=== PATIENT | female | born 1965 | race Caucasian/White ===

== ENCOUNTER 2020-03-08 08:54 | Outpatient (RCR) | payer MEDICAID, SELFPAY ==
--- NOTE | 2020-03-09 10:37 | HP.FCE ---
Floor (Occasional 1-33% of Day): 35# Floor (Frequent 34-66% of Day): 18# Floor (Constant 67-100% of Day): 7# Floor PDL: Light-Medium Knee (Occasional 1-33% of Day): 35# Knee (Frequent 34-66% of Day): 18# Knee (Constant 67-100% of Day): 7# Knee PDL: Light-Medium Waist (Occasional 1-33% of Day): 35# Waist (Frequent 34-66% of Day): 18# Waist (Constant 67-100% of Day): 7# Waist PDL: Light-Medium Shoulder (Occasional 1-33% of Day): 30# Shoulder (Frequent 34-66% of Day): 15# Shoulder (Constant 67-100% of Day): NA Shoulder PDL: Light Overhead (Occasional 1-33% of Day): 15# Overhead (Frequent 34-66% of Day): 8# Overhead (Constant 67-100% of Day): NA Overhead PDL: Sedentary-Light Comments: pt demo poor lifting mechanics with lifting- use of UB more than LB and pt lifted boxes keeping them away from body vs keeping weight close to pts body. Bending: Frequent Ability (34-66% of day) Squatting: Frequent Ability (34-66% of day) Kneeling: Occasional Ability (1-33% of day) Comments: with external support Reaching out: Occasional Ability (1-33% of day) Reaching up: Occasional Ability (1-33% of day) Sitting: Frequent Ability (34-66% of day) Comments: with ability to shift body weight Walking: Frequent Ability (34-66% of day) Standing: Occasional Ability (1-33% of day) Duration Sedentary Sedentary Light Light Light Medium Medium Medium Heavy Very Heavy Heavy Occasional (0-33% of day) Frequent (34-66% of day) Constant (67-100% of day) 10 # Negligible Negligible 15 # 8 # Negligible 20 # 10# Negli. 35 # 18 # 7 # 50 # 25 # 10 # 75 # 100 # >100 # 38 # 50 # >50 # 15 # 20 # >20 # Height: 1.68 m Weight:: 81.647 kg Hand Dominance: Right Medical History Including Restrictions: Pt states she was in good health untill 1998 when she was diagnossed with anxiety and IBS. pt states she controls her IBS by diet, and with anxiety she has medication but does not take the medication she avoids stressful situations. Pt states she was dx with chronic myofascial syndrom in 2001 or 2003. she states she is mtg the symptoms with pain medication and deep tissue massages. pt states she does smoke and does not exercise. Diagnoses: Chronic Myofascial syndrom dx in 2001 -2003 per pt. CTS 2013 bilateral per pt. chronic back pain per dr. note. hyperlipidemia per dr. note Symptoms: Pain in top of shoulders radiating to neck and to base of skull. low back pain. knee pain. bilateral hand tingling/numbness at night braces alleviate symptoms Pain: Pt states she takes percoset 7.5 or 7.25 millagrams for pain 1-2 x a day. pt reports her current pain level is 4/10. no pain medication taken today. resting heart rate 85. Anneliese pain scale score 8 a score of 30 or greater would indicate poor poor psychodynamics. Pt well below 30. Work History: Pt states she works for [employer] and has worked there on and off for 6 years. 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 Pt states she works 3 days a week and 6 hours a day. pt states prior to her employment at the [employer] she worked 5 months for [employer] but was unable to continue with that position due to pain. Behavioral: pt was cooperative throughout assessment and demonstrated with flat affect. ADLS: Pt states she lives in a ranch home with a basement. pt states two entry steps with two rails. Pt's lives with and daughter who is 33 years old. Pt states her daughter does the laundry due to the steps. Daughter does the yard work. does not work outside home his is on disability and placed on that in in 1998. Pt states she has a tub shower combination no adaptive eq. needed. pt reports she can bath and dress ind. pt states she can do the grocery shopping, meal prep and cleaning pt can do at ind. level. drives ind. ROM: pt demo ROM WNL Strength: pt demo mmt 4/5 grossly throughout Right Collection Systems Technician Strength Average: 40.00 Right Collection Systems Technician Strength Percentile: 3% Left Collection Systems Technician Strength Average: 45.00 Left Collection Systems Technician Strength Percentile: 11% Right Lateral Pinch Average: 10.66 Right Lateral Pinch Percentile: 25% Left Lateral Pinch Average: 9.33 Left Lateral Pinch Percentile: 25% Right Tripod Pinch Average: 10.00 Right Tripod Pinch Percentile: 25# Left Tripod Pinch Average: 10.00 Left Tripod Pinch Percentile: 50% Sensation: Monofilament testing bilateral 2.83 indicates sensation is WNL Fine Motor: 9-hole peg test right 19.67 places pt in the 75%. left 20.16 places pt in the 75% Balance: No loss of balance noted during assessment Bending: pt demo the ability to bend forward three times, ten times and ten times rapidly. pt reported pain 6/10 did not indicate where pain was. heart rate ranged from 89-92 following. Pt can bend forward on a frequent ability. Squatting: pt demo the ability to squat three times ten times and 9 times rapidly. pt reported muscle pain in pointed to quads. reported pain level at 6/10 did not indicate where pain was at. heart rate ranged from 89 and dropped to 76 following. Pt can squat on a frequent ability. Kneeling: pt demo the ability to kneel three times, ten times with external support. pt unable to perform 10 times rapidly. heart rate ranged from 89-112 following. pt did use time to stretch leg muscles out. pt can kneel on occasional ability. Reaching out/up: pt demo the ability to reach up/out three times, ten times and ten times rapidly. heart rate ranged from 77-89. pt reported pain in arms 6/10. pt can reach out/up on occasional ability Walking: pt demo the ability to ambulate 15 min with a reciprical gait pattern. pt states legs feel tight from the activity. pt can ambulate on a frequent ability. Standing: pt demo the ability to stand for 6 min shifting her body weight. pt can stand on a occasional ability. Sitting: pt demo the ability to sit for 40 min with no expressed or apparent discomfort- after reaching up/out task pt indicated chair was uncomfortable and turned chair around to place elbow on back rest. pt can sit on a frequent ability given opportunity to shift body weight. Climbing Stairs: pt ascended and descended ten steps with use of one hand rail and a reciprical step pattern. Floor Lift: Pt demo the ability to lift 35# maximally from this level. pt demo poor lifting mechanics with lifting- use of UB more than LB and pt lifted boxes keeping them away from body vs keeping weight close to pts body. Knee Lift: Pt demo the ability to lift 35# maximally from this level.pt demo poor lifting mechanics with lifting- use of UB more than LB and pt lifted boxes keeping them away from body vs keeping weight close to pts body. Waist Lift: Pt demo the ability to lift 35# maximally from this level. pt demo poor lifting mechanics with lifting- use of UB more than LB and pt lifted boxes keeping them away from body vs keeping weight close to pts body. Shoulder Lift: Pt demo the ability to lift 30# maximally from this level.pt demo poor lifting mechanics with lifting- use of UB more than LB and pt lifted boxes keeping them away from body vs keeping weight close to pts body. Overhead Lift: Pt demo the ability to lift 15# maximally from this level. pt demo poor lifting mechanics with lifting- use of UB more than LB and pt lifted boxes keeping them away from body vs keeping weight close to pts body. Carrying: pt demo the ability to carry 30# for 30 feet with good ability. Comments: pt demo poor lifting mechanics with lifting- use of UB more than LB and pt lifted boxes keeping them away from body vs keeping weight close to pts body.
--- NOTE | 2020-07-19 12:57 | HP.OT.NRP ---
MARYELLEN RIOS was seen in my office for initial evaluation on . The following Plan of Care was established for this patient: This patient was last seen in our office 03/08/20. Pertinent comments regarding their Occupational therapy will appear below: pt seen for FCE only. At this point I will be discontinuing this patient from occupational therapy. I would be happy to see this patient again in the future if found appropriate by the physician. Thank you! Tamara Salas, OTR/L, CHT
== END 2020-03-08 19:00 | disposition home or self-care (01) ==
LOC: OT 08:54
DX: Z01.89 Encounter for other specified special examinations (principal)
CPT/HCPCS: 97750